=== PATIENT | female | born 1980 | race Caucasian/White ===

== ENCOUNTER 2018-05-08 11:41 | Inpatient (IN) | payer BC ==
[2018-05-08] MEDS ORDERED: Ondansetron 4 MG/2 ML SDV IVPUSH PRN (12:21)
[2018-05-08] MEDS: Sodium Chloride 0.9% 1,000 ML IV SCH ×2 (12:43→21:36)
[2018-05-08] MEDS: metroNIDAZOLE/Normal Saline 500 MG in Premix Bag 1 BAG IV SCH ×2 (12:54→20:04)
[2018-05-08] MEDS: Sodium Chloride 0.9% 10 ML Syringe FLUSH PRN ×2 (13:14→13:46)
[2018-05-08] MEDS: Ondansetron 4 MG/2 ML SDV IVPUSH PRN (13:14)
[2018-05-08] MEDS: Vancomycin 125 MG/5 ML ML Oral Solution PO SCH ×3 (13:45→21:31)
[2018-05-08] MEDS: Acetaminophen 325 MG Tab PO PRN ×2 (15:41→21:31)
[2018-05-08] MEDS: Ketorolac 30 MG/ML SDV IVPUSH PRN (19:48)
[2018-05-09] MEDS: Ketorolac 30 MG/ML SDV IVPUSH PRN (03:34)
[2018-05-09] MEDS: metroNIDAZOLE/Normal Saline 500 MG in Premix Bag 1 BAG IV SCH ×3 (03:35→20:37)
[2018-05-09] MEDS: Sodium Chloride 0.9% 10 ML Syringe FLUSH PRN (03:37)
[2018-05-09] MEDS: Sodium Chloride 0.9% 1,000 ML IV SCH ×3 (06:58→21:40)
[2018-05-09] MEDS: Vancomycin 125 MG/5 ML ML Oral Solution PO SCH ×4 (09:00→21:41)
--- NOTE | 2018-05-09 10:21 | PCM.CONS ---
H&P History of Present Illness - General Date of Service: 05/09/18 Admit Problem/Dx: Admission Diagnosis/Problem Admission Diagnosis/Problem Abdominal pain Source of Information: Patient, Old Records - History of Present Illness Initial Comments - Free Text/Narative: 37 yo esteban who was admitted yesterday with a 2 wk hx of diarrhea. She underwent a d+c as well as a robotic left ovarian cystectomy and tubal ligation. As part of her perioperative medication was given cleocin. She developed diarrhea in the post operative time frame and has been going up to every 15 min a day. She was seen in clinic on the Apr and this was felt to be secondary to a viral illness. Was given imodium with no relief or her sx. Yesterday was admitted to after presenting to the clinic. Noted to have a leukocytosis, stools for c diff and culture have been ordered. In addition to the diarrhea. She has had some abdominal pain. especially on the right. It is worse with movement. She also notes some fever and chills as well. Abdomen Pain Score (Numeric/FACES): 6 DENIES ANY PAIN WHEN ASKED AT PRESENT TIME. Pain Score (Numeric/FACES): 0 - Related Data Allergies/Adverse Reactions: Allergies Allergy/AdvReac Type Severity Reaction Status Date / Time ampicillin Allergy Hives Verified 02/20/14 09:23 Home Medications: Home Meds Acetaminophen/HYDROcodone [[place] 325-5 MG] 1 tab PO Q4H PRN 05/09/18 [History] Loperamide HCl [Imodium A-D] 2 mg PO 5XDAY PRN 05/09/18 [History] Past Medical History Gastrointestinal History: Reports: Other (See Below) Other Gastrointestinal History: diarhea since 05/01/18 several stools per day HIDE BUFFER History: Reports: , Spontaneous , Other (See Below) Other OB/BYN History: pt had a miscarriage and on 04/25/18 had a d&c at [facility] with removal of a large left ovarian cyst via laproscopic procedure at the same time - Past Surgical History GI Surgical History: Reports: Hernia, Abdominal Social & Family History - Family History Family Medical History: Noncontributory - Tobacco Use Smoking Status *Q: Never Smoker Second Hand Smoke Exposure: No - Caffeine Use Caffeine Use: Reports: Coffee, Soda - Recreational Drug Use Recreational Drug Use: No H&P Review of Systems - Review of Systems: Review Of Systems: See Below General: Reports: Fever, Chills, Malaise Pulmonary: Reports: No Symptoms Cardiovascular: Reports: No Symptoms Gastrointestinal: Reports: Diarrhea. Denies: Bloody Stool Genitourinary: Reports: No Symptoms Musculoskeletal: Reports: No Symptoms Skin: Reports: No Symptoms Exam - Exam Exam: See Below - Vital Signs Vital Signs: Last Vital Signs Temp 98.3 F 05/09/18 06:48 Pulse 96 05/09/18 06:48 Resp 18 05/09/18 06:48 BP 104/55 L 05/09/18 06:48 Pulse Ox 96 05/09/18 06:48 Weight: 87.09 kg - Exam General: Alert, Moderate Distress Lungs: Clear to Auscultation, Normal Respiratory Effort Cardiovascular: Regular Rate, Regular Rhythm GI/Abdominal Exam: No Distention, Tender (right side ) - Patient Data Lab Results Last 24 hrs: Laboratory Results - last 24 hr 05/08/18 05/08/18 05/09/18 Range/Units 12:43 17:15 06:30 WBC 17.4 H (4.5-12.0) X10-3/uL RBC 4.78 (3.23-5.20) x10(6)uL Hgb 14.1 (11.5-15.5) g/dL Hct 41.6 (30.0-51.3) % MCV 87.0 (80-96) fL MCH 29.6 (27.7-33.6) pg MCHC 34.0 (32.2-35.4) g/dL RDW 11.8 (11.5-15.5) % Plt Count 307 (125-369) X10(3)uL MPV 6.7 L (7.4-10.4) fL Add Manual Diff Yes Neutrophils % (Manual) 86 H (46-82) % Band Neutrophils % 1 (0-6) % Lymphocytes % (Manual) 7 L (13-37) % Monocytes % (Manual) 6 (4-12) % ESR 1 (0-20) mm/hr Sodium (135-145) mmol/L Potassium (3.5-5.3) mmol/L Chloride (100-110) mmol/L Carbon Dioxide (21-32) mmol/L BUN (7-18) mg/dL Creatinine (0.55-1.02) mg/dL Est Cr Clr Drug Dosing mL/min Estimated GFR (MDRD) (>60) BUN/Creatinine Ratio (9-20) Glucose (80-116) mg/dL Lactic Acid (0.4-2.2) mmol/L Calcium (8.6-10.2) mg/dL C-Reactive Protein (0.5-0.9) mg/dL HCG, Quant 67 (<5) mIU/mL Urine Color Yellow (YELLOW) Urine Appearance Clear (CLEAR) Urine pH 5.0 (5.0-6.5) Ur Specific [place] 1.015 (1.010-1.025) Urine Protein Negative (NEGATIVE) mg/dL Urine Glucose (UA) Normal (NEGATIVE) mg/dL Urine Ketones 50 H (NEGATIVE) mg/dL Urine Occult Blood Moderate H (NEGATIVE) Urine Nitrite Negative (NEGATIVE) Urine Bilirubin Negative (NEGATIVE) Urine Urobilinogen Normal (NEGATIVE) mg/dL Ur Leukocyte Esterase Negative (NEGATIVE) Urine RBC 5-10 (0) Urine WBC 0-5 (0) Ur Squamous Epith Cells Few H (NS,R,O) Urine Bacteria Few H (NS) 05/09/18 05/09/18 05/09/18 Range/Units 06:30 06:30 06:30 WBC (4.5-12.0) X10-3/uL RBC (3.23-5.20) x10(6)uL Hgb (11.5-15.5) g/dL Hct (30.0-51.3) % MCV (80-96) fL MCH (27.7-33.6) pg MCHC (32.2-35.4) g/dL RDW (11.5-15.5) % Plt Count (125-369) X10(3)uL MPV (7.4-10.4) fL Add Manual Diff Neutrophils % (Manual) (46-82) % Band Neutrophils % (0-6) % Lymphocytes % (Manual) (13-37) % Monocytes % (Manual) (4-12) % ESR (0-20) mm/hr Sodium 137 (135-145) mmol/L Potassium 3.4 L (3.5-5.3) mmol/L Chloride 104 (100-110) mmol/L Carbon Dioxide 24 (21-32) mmol/L BUN 6 L (7-18) mg/dL Creatinine 0.8 (0.55-1.02) mg/dL Est Cr Clr Drug Dosing 113.49 mL/min Estimated GFR (MDRD) > 60 (>60) BUN/Creatinine Ratio 7.5 L (9-20) Glucose 105 (80-116) mg/dL Lactic Acid 0.6 (0.4-2.2) mmol/L Calcium 7.5 L (8.6-10.2) mg/dL C-Reactive Protein 4.4 H* (0.5-0.9) mg/dL HCG, Quant (<5) mIU/mL Urine Color (YELLOW) Urine Appearance (CLEAR) Urine pH (5.0-6.5) Ur Specific [place] (1.010-1.025) Urine Protein (NEGATIVE) mg/dL Urine Glucose (UA) (NEGATIVE) mg/dL Urine Ketones (NEGATIVE) mg/dL Urine Occult Blood (NEGATIVE) Urine Nitrite (NEGATIVE) Urine Bilirubin (NEGATIVE) Urine Urobilinogen (NEGATIVE) mg/dL Ur Leukocyte Esterase (NEGATIVE) Urine RBC (0) Urine WBC (0) Ur Squamous Epith Cells (NS,R,O) Urine Bacteria (NS) Result Diagrams: 05/09/18 06:30 05/09/18 06:30 Consult PN Assessment/Plan Procedures: Procedures CHORIONIC GONADOTROPIN ASSAY (02/20/14) RPR UMBIL BARBARA REDUC > 5 YR (02/20/14) TISSUE EXAM BY PATHOLOGIST (02/20/14) (1) Diarrhea SNOMED Code(s): 31975925 Code(s): R19.7 - DIARRHEA, UNSPECIFIED Current Visit: Yes Qualifiers: Diarrhea type: presumed infectious Qualified Code(s): R19.7 - Diarrhea, unspecified Assessment:: Given hx of cleocin this is C. Diff until proven otherwise Problem List Initiated/Reviewed/Updated: Yes Plan: would await the stool studies. already on appropriate antibiotics, po vanc would recommend a kub to eval the colon for dilation. continue hydration monitor U/O
[2018-05-09] MEDS: Ketorolac 15 MG/ML SDV IVPUSH PRN ×3 (10:48→20:36)
--- NOTE | 2018-05-09 13:11 | PN ---
DATE SEEN: 05/09/2018 SUBJECTIVE: Inez Warner is a 37-year-old female, presented with complicated diarrhea. Clostridium difficile of concern. Spoke with lab. Laboratory tests were forwarded to [place]. Results should be available this evening. Further GI workup sent to reference lab. She had a pretty good night. Has cramps, urgency, passes a small quantity of stool, and relief. Appetite reduced but taking fluids with reasonable success. OBJECTIVE: VITAL SIGNS: 36.8, 105/55, 18, 96. GENERAL: Soft spoken. A bit withdrawn. NECK: Benign. Thyroid small. CHEST: Clear in all lung delgado. HEART: Regular without ectopy or murmur. ABDOMEN: Surgical scars were noted. Recent laparoscopic issue, but unchanged. Mild tenderness. ASSESSMENT: Complicated diarrhea, likely infectious origin, likely clostridia. PLAN: We will have consultation with Dr. Madrigal for completeness. Radiographs will be performed. Advancement of IV fluids. Continue treatment. Clostridia testing available this evening. /[id number] JANESSA/HAYDEE
--- NOTE | 2018-05-09 13:56 | HP ---
ADMISSION DATE: 05/08/2018 CHIEF COMPLAINT: Complicated abdominal pain, diarrhea, and dehydration. HISTORY OF PRESENT ILLNESS: Inez Warner is a 37-year-old, female, [place] resident, was seen by Dr. Maximino Bowen at [facility], for a protracted lengthy gastrointestinal conflict. The patient had undergone on 04/25/2018, a da Jose Antonio left ovarian cystectomy, left oophorectomy versus cystectomy, bilateral salpingectomy, and suction D and C for about a 10-week nonviable . At the time of her visit to Dr. Alejo, was uncertain of the well-being, exam revealed evidence of a spontaneous AB, and underwent a surgical intervention 04/25/2018. All went well. No complicating issues. Surgery went well. Pathology was benign. Discharged in good condition. She was well until about 04/29, began having cramps, abdominal pain, urgency, peculiar foul-smelling stools. Thought to be infectious and benign in nature, symptoms persisted. She was seen by Ariadne Marsh, [facility], [employer], diligence observation. Symptoms continued to be problematic, was seen by Dr. Bowen on day of admission at [facility]. Severe cramps and diarrhea. Cramps come and go, fulminant stools, large in quantity, 8-10 per day, maybe more. Again, clindamycin therapy noted. No ill contacts. Still works and is fairly comfortable in the [place] [employer] office. No family members have been ill. She has not traveled outside the area. HOME MEDICATIONS: Include: 1. Hydrocodone. 2. Loperamide. ALLERGIES: Amoxicillin with diarrhea. PAST SURGICAL HISTORY: Significant for umbilical hernia repair in 2013. Most recent right ovarian cystectomy, tubal ligation, and evacuation of spontaneous AB. PAST MEDICAL HISTORY: No other operative procedures, hospitalizations, unusual childhood diseases, major injuries, or fractures. SOCIAL HISTORY: Happily . Lives [place]. 35, good health. Works at [employer] [employer]. Nonsmoker. No alcohol consumption. No illicit drug use. FAMILY HISTORY: Dad 73, doing okay. Mom 72, doing okay. Brothers 3, no sisters. Diabetes with dad, no early complication. REVIEW OF SYSTEMS: CONSTITUTIONAL: Just feeling weak and tired. HEENT: Sees well, hears well, intact dentition. RESPIRATORY: Denies respiratory difficulty, complicated cough. GASTROINTESTINAL: Please see HPI. Recent D and C with minimal bleeding. Bladder control reasonable. MUSCULOSKELETAL: No particular joint complaint. PSYCHIATRIC: Mood has been a little bit subdued due to illness, no skin rash. PHYSICAL EXAMINATION: VITAL SIGNS: 37.3, 123/72, 14 respirations, 96. GENERAL: Acutely ill, complicated abdominal pain. HEENT: Reveal funduscopic benign. Conjunctivae clear. Bright tympanic membranes. Clear nasal discharge. Mouth and oropharynx clear. Good dentition. Tongue midline. Somewhat dry mucous membranes. Intact tonsils. NECK: Benign. Thyroid small. No meningismus. CHEST: Clear in all lung delgado on auscultation. HEART: On auscultation, no ectopy or murmur. ABDOMEN: Pretty benign. A little tender to all quadrants. Nothing localizing. Good bowel sounds. RECTAL: Deferred. EXTREMITIES: Well perfused. SKIN: Without rash. NEUROMUSCULAR: Intact. LABORATORY STUDIES: CBC and electrolytes from [facility] reviewed. ASSESSMENT: Complicated severe diarrhea, Clostridium difficile likely agent of origin. PLAN: IV fluids, good hydration, electrolyte balance, moderation and care. We will go with IV Flagyl and oral vancomycin, complementary care and well being, supportive measures, fluids, and electrolyte balance. /[id number] /HAYDEE
[2018-05-09] MEDS: Ondansetron 4 MG/2 ML SDV IVPUSH PRN (15:16)
--- NOTE | 2018-05-09 15:19 | CR ---
INDICATION: Diarrhea. Possible C. difficile colitis. ABDOMEN, SUPINE VIEW: FINDINGS: No relevant comparison imaging. There is some air and fluid and stool throughout non-distended small and large bowel. No disproportionate dilatation to suggest obstruction. On the supine view, no definite free air or pneumatosis. There are some phleboliths in the right pelvis. No other unusual masses or calcifications. There is some degenerative change associated with the facet joints of the lower lumbar spine. 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 IMPRESSION: No acute diagnostic abnormality is shown. As appropriate, consider a CT scan of abdomen and pelvis for further evaluation. MTDD
--- NOTE | 2018-05-09 17:07 | PCM.CONSN ---
- General Info Date of Service: 05/09/18 - Review of Systems Systems Review Comment:: C diff is + reports feeling better. did get a pain shot that helped. - Patient Data Vitals - Most Recent: Last Vital Signs Temp 99.4 F 05/09/18 11:30 Pulse 90 05/09/18 11:30 Resp 18 05/09/18 11:30 BP 110/72 05/09/18 11:30 Pulse Ox 96 05/09/18 11:30 Weight - Most Recent: 87.09 kg I&O - Last 24 Hours: Intake & Output 05/09/18 05/09/18 05/09/18 06:59 14:59 22:59 Intake Total 1588 1585 Output Total 840 Balance 1588 745 Lab Results Last 24 Hours: Laboratory Results - last 24 hr 05/08/18 05/09/18 05/09/18 Range/Units 17:15 06:30 06:30 WBC 17.4 H (4.5-12.0) X10-3/uL RBC 4.78 (3.23-5.20) x10(6)uL Hgb 14.1 (11.5-15.5) g/dL Hct 41.6 (30.0-51.3) % MCV 87.0 (80-96) fL MCH 29.6 (27.7-33.6) pg MCHC 34.0 (32.2-35.4) g/dL RDW 11.8 (11.5-15.5) % Plt Count 307 (125-369) X10(3)uL MPV 6.7 L (7.4-10.4) fL Add Manual Diff Yes Neutrophils % (Manual) 86 H (46-82) % Band Neutrophils % 1 (0-6) % Lymphocytes % (Manual) 7 L (13-37) % Monocytes % (Manual) 6 (4-12) % ESR 1 (0-20) mm/hr Sodium (135-145) mmol/L Potassium (3.5-5.3) mmol/L Chloride (100-110) mmol/L Carbon Dioxide (21-32) mmol/L BUN (7-18) mg/dL Creatinine (0.55-1.02) mg/dL Est Cr Clr Drug Dosing mL/min Estimated GFR (MDRD) (>60) BUN/Creatinine Ratio (9-20) Glucose (80-116) mg/dL Lactic Acid 0.6 (0.4-2.2) mmol/L Calcium (8.6-10.2) mg/dL C-Reactive Protein (0.5-0.9) mg/dL Urine Color Yellow (YELLOW) Urine Appearance Clear (CLEAR) Urine pH 5.0 (5.0-6.5) Ur Specific [place] 1.015 (1.010-1.025) Urine Protein Negative (NEGATIVE) mg/dL Urine Glucose (UA) Normal (NEGATIVE) mg/dL Urine Ketones 50 H (NEGATIVE) mg/dL Urine Occult Blood Moderate H (NEGATIVE) Urine Nitrite Negative (NEGATIVE) Urine Bilirubin Negative (NEGATIVE) Urine Urobilinogen Normal (NEGATIVE) mg/dL Ur Leukocyte Esterase Negative (NEGATIVE) Urine RBC 5-10 (0) Urine WBC 0-5 (0) Ur Squamous Epith Cells Few H (NS,R,O) Urine Bacteria Few H (NS) 05/09/18 05/09/18 Range/Units 06:30 06:30 WBC (4.5-12.0) X10-3/uL RBC (3.23-5.20) x10(6)uL Hgb (11.5-15.5) g/dL Hct (30.0-51.3) % MCV (80-96) fL MCH (27.7-33.6) pg MCHC (32.2-35.4) g/dL RDW (11.5-15.5) % Plt Count (125-369) X10(3)uL MPV (7.4-10.4) fL Add Manual Diff Neutrophils % (Manual) (46-82) % Band Neutrophils % (0-6) % Lymphocytes % (Manual) (13-37) % Monocytes % (Manual) (4-12) % ESR (0-20) mm/hr Sodium 137 (135-145) mmol/L Potassium 3.4 L (3.5-5.3) mmol/L Chloride 104 (100-110) mmol/L Carbon Dioxide 24 (21-32) mmol/L BUN 6 L (7-18) mg/dL Creatinine 0.8 (0.55-1.02) mg/dL Est Cr Clr Drug Dosing 113.49 mL/min Estimated GFR (MDRD) > 60 (>60) BUN/Creatinine Ratio 7.5 L (9-20) Glucose 105 (80-116) mg/dL Lactic Acid (0.4-2.2) mmol/L Calcium 7.5 L (8.6-10.2) mg/dL C-Reactive Protein 4.4 H* (0.5-0.9) mg/dL Urine Color (YELLOW) Urine Appearance (CLEAR) Urine pH (5.0-6.5) Ur Specific [place] (1.010-1.025) Urine Protein (NEGATIVE) mg/dL Urine Glucose (UA) (NEGATIVE) mg/dL Urine Ketones (NEGATIVE) mg/dL Urine Occult Blood (NEGATIVE) Urine Nitrite (NEGATIVE) Urine Bilirubin (NEGATIVE) Urine Urobilinogen (NEGATIVE) mg/dL Ur Leukocyte Esterase (NEGATIVE) Urine RBC (0) Urine WBC (0) Ur Squamous Epith Cells (NS,R,O) Urine Bacteria (NS) [place] Results Last 24 Hours: Microbiology 05/08/18 17:15 Clostridium difficile Toxin A & B - Final Stool / Feces Positive C. Diff Toxin 05/08/18 12:43 Aerobic Blood Culture - Preliminary Blood - Venous NO GROWTH AFTER 1 DAY Anaerobic Blood Culture - Preliminary NO GROWTH AFTER 1 DAY Med Orders - Current: Current Medications Acetaminophen (Tylenol) 650 mg PO Q4H PRN PRN Reason: Pain Last Admin: 05/08/18 21:31 Dose: 650 mg Sodium Chloride (Normal Saline) 1,000 mls @ 150 mls/hr IV ASDIRECTED [facility] Last Admin: 05/09/18 15:24 Dose: 125 mls/hr Metronidazole 500 mg/ Premix 100 mls @ 100 mls/hr IV Q8H [facility] Last Admin: 05/09/18 12:15 Dose: 100 mls/hr Ketorolac Tromethamine (Toradol) 15 mg IVPUSH Q4H PRN PRN Reason: abd pain Stop: 05/13/18 18:22 Last Admin: 05/09/18 15:21 Dose: 15 mg Ondansetron HCl (Zofran) 4 mg IVPUSH Q4H PRN PRN Reason: Nausea/Vomiting Last Admin: 05/09/18 15:16 Dose: 4 mg Sodium Chloride (Saline Flush) 10 ml FLUSH ASDIRECTED PRN PRN Reason: Keep Vein Open Last Admin: 05/09/18 03:37 Dose: 10 ml Vancomycin HCl (Vancocin 125 Mg/5 Ml Soln) 125 mg PO QID ASHLEE Last Admin: 05/09/18 16:37 Dose: 125 mg Discontinued Medications Vancomycin HCl 2,000 mg/ (Sodium Chloride) 250 mls @ 167 mls/hr IV Q12H ASHLEE Ketorolac Tromethamine (Toradol) 15 mg IVPUSH Q4H PRN PRN Reason: abd pain Stop: 05/13/18 18:22 Last Admin: 05/09/18 03:34 Dose: 15 mg Ondansetron HCl (Zofran) 4 mg IVPUSH Q6H PRN PRN Reason: Nausea/Vomiting Vancomycin HCl (Pharmacy To Dose - Vancomycin) 1 dose .XX ASDIRECTED ASHLEE - Exam General: Alert, Oriented, Cooperative, Mild Distress (better ) GI/Abdominal Exam: Soft, Tender (improved from this am ) Consult PN Assessment/Plan Procedures: Procedures CHORIONIC GONADOTROPIN ASSAY (02/20/14) RPR UMBIL BARBARA REDUC > 5 YR (02/20/14) TISSUE EXAM BY PATHOLOGIST (02/20/14) (1) C. difficile colitis SNOMED Code(s): 657551067 Code(s): A04.72 - ENTEROCOLITIS D/T CLOSTRIDIUM DIFFICILE, NOT SPCF RECUR Priority: High Current Visit: Yes Problem List Initiated/Reviewed/Updated: Yes My Orders Last 24 Hours: My Active Orders 05/09/18 10:26 Intake and Output [RC] Q4HR 05/09/18 16:59 LACTIC ACID [CHEM] Routine 05/10/18 05:11 CBC WITH AUTO DIFF [HEME] AM COMPREHENSIVE METABOLIC PN,CMP [CHEM] AM Plan: will recheck lactic acid labs in am.
[2018-05-10] MEDS: Sodium Chloride 0.9% 1,000 ML IV SCH ×2 (04:20→12:02)
[2018-05-10] MEDS: metroNIDAZOLE/Normal Saline 500 MG in Premix Bag 1 BAG IV SCH ×3 (04:21→20:56)
[2018-05-10] MEDS: Ketorolac 15 MG/ML SDV IVPUSH PRN (04:32)
[2018-05-10] MEDS: Vancomycin 125 MG/5 ML ML Oral Solution PO SCH ×4 (09:26→21:03)
[2018-05-10] MEDS: Hydrocortisone 2.5% Crm 30 GM Tube TOP SCH ×2 (09:26→21:01)
--- NOTE | 2018-05-10 10:55 | PCM.CONSN ---
- General Info Date of Service: 05/10/18 - Review of Systems Systems Review Comment:: Feeling better - Patient Data Vitals - Most Recent: Last Vital Signs Temp 99.1 F 05/10/18 00:00 Pulse 98 05/10/18 04:00 Resp 17 05/10/18 04:00 BP 130/80 05/10/18 04:00 Pulse Ox 96 05/09/18 11:30 Weight - Most Recent: 87.09 kg I&O - Last 24 Hours: Intake & Output 05/09/18 05/10/18 05/10/18 22:59 06:59 14:59 Intake Total 3228 2057 Output Total 3050 800 Balance 178 1257 Lab Results Last 24 Hours: Laboratory Results - last 24 hr 05/09/18 05/10/18 05/10/18 Range/Units 17:25 06:40 06:40 WBC 9.1 (4.5-12.0) X10-3/uL RBC 4.38 (3.23-5.20) x10(6)uL Hgb 12.6 (11.5-15.5) g/dL Hct 38.0 (30.0-51.3) % MCV 86.6 (80-96) fL MCH 28.8 (27.7-33.6) pg MCHC 33.2 (32.2-35.4) g/dL RDW 12.2 (11.5-15.5) % Plt Count 262 (125-369) X10(3)uL MPV 6.7 L (7.4-10.4) fL Neut % (Auto) 75.8 (46-82) % Lymph % (Auto) 10.7 L (13-37) % [place] % (Auto) 11.1 (4-12) % Eos % (Auto) 2 (1.0-5.0) % Baso % (Auto) 0 (0-2) % Neut # (Auto) 6.9 (1.6-8.3) # Lymph # (Auto) 1.0 (0.6-5.0) # [place] # (Auto) 1.0 (0.0-1.3) # Eos # (Auto) 0.2 (0.0-0.8) # Baso # (Auto) 0.0 (0.0-0.2) # Sodium 142 (135-145) mmol/L Potassium 3.3 L (3.5-5.3) mmol/L Chloride 109 D (100-110) mmol/L Carbon Dioxide 25 (21-32) mmol/L BUN 3 L (7-18) mg/dL Creatinine 0.7 (0.55-1.02) mg/dL Est Cr Clr Drug Dosing 129.71 mL/min Estimated GFR (MDRD) > 60 (>60) BUN/Creatinine Ratio 4.3 L (9-20) Glucose 94 (80-116) mg/dL Lactic Acid 0.6 (0.4-2.2) mmol/L Calcium 6.9 L (8.6-10.2) mg/dL Total Bilirubin 0.3 (0.1-1.3) mg/dL AST 23 (5-25) IU/L ALT 34 (12-36) U/L Alkaline Phosphatase 36 L (56-112) IU/L Total Protein 4.1 L (6.0-8.0) g/dL Albumin 1.7 L* (3.5-5.2) g/dL Globulin 2.4 g/dL Albumin/Globulin Ratio 0.7 HCG, Quant (<5) mIU/mL 05/10/18 Range/Units 06:40 WBC (4.5-12.0) X10-3/uL RBC (3.23-5.20) x10(6)uL Hgb (11.5-15.5) g/dL Hct (30.0-51.3) % MCV (80-96) fL MCH (27.7-33.6) pg MCHC (32.2-35.4) g/dL RDW (11.5-15.5) % Plt Count (125-369) X10(3)uL MPV (7.4-10.4) fL Neut % (Auto) (46-82) % Lymph % (Auto) (13-37) % [place] % (Auto) (4-12) % Eos % (Auto) (1.0-5.0) % Baso % (Auto) (0-2) % Neut # (Auto) (1.6-8.3) # Lymph # (Auto) (0.6-5.0) # [place] # (Auto) (0.0-1.3) # Eos # (Auto) (0.0-0.8) # Baso # (Auto) (0.0-0.2) # Sodium (135-145) mmol/L Potassium (3.5-5.3) mmol/L Chloride (100-110) mmol/L Carbon Dioxide (21-32) mmol/L BUN (7-18) mg/dL Creatinine (0.55-1.02) mg/dL Est Cr Clr Drug Dosing mL/min Estimated GFR (MDRD) (>60) BUN/Creatinine Ratio (9-20) Glucose (80-116) mg/dL Lactic Acid (0.4-2.2) mmol/L Calcium (8.6-10.2) mg/dL Total Bilirubin (0.1-1.3) mg/dL AST (5-25) IU/L ALT (12-36) U/L Alkaline Phosphatase (56-112) IU/L Total Protein (6.0-8.0) g/dL Albumin (3.5-5.2) g/dL Globulin g/dL Albumin/Globulin Ratio HCG, Quant 31 (<5) mIU/mL [place] Results Last 24 Hours: Microbiology 05/08/18 17:15 Clostridium difficile Toxin A & B - Final Stool / Feces Positive C. Diff Toxin 05/08/18 12:43 Aerobic Blood Culture - Preliminary Blood - Venous NO GROWTH AFTER 1 DAY Anaerobic Blood Culture - Preliminary NO GROWTH AFTER 1 DAY Med Orders - Current: Current Medications Acetaminophen (Tylenol) 650 mg PO Q4H PRN PRN Reason: Pain Last Admin: 05/08/18 21:31 Dose: 650 mg Hydrocortisone (Hydrocortisone 2.5% Crm) 0 gm TOP BID [facility] Last Admin: 05/10/18 09:26 Dose: 30 mg Metronidazole 500 mg/ Premix 100 mls @ 100 mls/hr IV Q8H [facility] Last Admin: 05/10/18 04:21 Dose: 100 mls/hr Sodium Chloride (Normal Saline) 1,000 mls @ 75 mls/hr IV ASDIRECTED [facility] Ketorolac Tromethamine (Toradol) 15 mg IVPUSH Q4H PRN PRN Reason: abd pain Stop: 05/13/18 18:22 Last Admin: 05/10/18 04:32 Dose: 15 mg Ondansetron HCl (Zofran) 4 mg IVPUSH Q4H PRN PRN Reason: Nausea/Vomiting Last Admin: 05/09/18 15:16 Dose: 4 mg Sodium Chloride (Saline Flush) 10 ml FLUSH ASDIRECTED PRN PRN Reason: Keep Vein Open Last Admin: 05/09/18 03:37 Dose: 10 ml Vancomycin HCl (Vancocin 125 Mg/5 Ml Soln) 125 mg PO QID ASHLEE Last Admin: 05/10/18 09:26 Dose: 125 mg Discontinued Medications Sodium Chloride (Normal Saline) 1,000 mls @ 150 mls/hr IV ASDIRECTED ASHLEE Last Admin: 05/10/18 04:20 Dose: 125 mls/hr Vancomycin HCl 2,000 mg/ (Sodium Chloride) 250 mls @ 167 mls/hr IV Q12H ASHLEE Ketorolac Tromethamine (Toradol) 15 mg IVPUSH Q4H PRN PRN Reason: abd pain Stop: 05/13/18 18:22 Last Admin: 05/09/18 03:34 Dose: 15 mg Ondansetron HCl (Zofran) 4 mg IVPUSH Q6H PRN PRN Reason: Nausea/Vomiting Vancomycin HCl (Pharmacy To Dose - Vancomycin) 1 dose .XX ASDIRECTED ASHLEE - Exam General: Alert, Oriented Lungs: Clear to Auscultation, Normal Respiratory Effort Cardiovascular: Regular Rate, Regular Rhythm GI/Abdominal Exam: Normal Bowel Sounds, Soft, Non-Tender Consult PN Assessment/Plan Procedures: Procedures CHORIONIC GONADOTROPIN ASSAY (02/20/14) RPR UMBIL BARBARA REDUC > 5 YR (02/20/14) TISSUE EXAM BY PATHOLOGIST (02/20/14) (1) C. difficile colitis SNOMED Code(s): 103065087 Code(s): A04.72 - ENTEROCOLITIS D/T CLOSTRIDIUM DIFFICILE, NOT SPCF RECUR Priority: High Current Visit: Yes Problem List Initiated/Reviewed/Updated: Yes My Orders Last 24 Hours: My Active Orders 05/09/18 10:26 Intake and Output [RC] Q4HR Plan: no further recommendations will sign off.
--- NOTE | 2018-05-10 10:55 | PN ---
DATE SEEN: 05/10/2018 SUBJECTIVE: Inez Warner is a 37-year-old, female, admitted with complicated diarrhea. Suspect clostridium difficile. Undergone laparoscopic tubal ligation, right ovarian cystectomy, D and C for incomplete spontaneous AB. Single dose of antibiotics was given. Dr. Alejo has requested repeat test. Numbers in the clinic have shown an appropriate decline. Last done date of admission was 69. Couple of stools last night. The pain is improving with less frequency and quantity. In good spirits otherwise. Fever has been absent. OBJECTIVE: VITAL SIGNS: 37.9, 99, 110/70, 83 mean, and 18 respirations. GENERAL: Appears much more comfortable. NECK: Benign. Thyroid small. CHEST: Clear in all lung delgado. HEART: Regular without ectopy or murmur. ABDOMEN: Benign. A little tender. SKIN: Surgical scar is well healed. ASSESSMENT: Clostridium difficile, improved, clinically and laboratory diagnosed. PLAN: Continue oral vancomycin, IV Flagyl, expect short hospital stay. ADDENDUM: She also has nonpalpable red raised rash on upper back, likely related to hospital clothing, Benadryl lotion will be applied t.i.d.. /[id number] /HAYDEE
[2018-05-10] MEDS: diphenhydrAMINE 50 MG/ML SDV IVPUSH PRN (21:31)
[2018-05-10] MEDS: Sodium Chloride 0.9% 10 ML Syringe FLUSH PRN (21:32)
[2018-05-11] MEDS: Sodium Chloride 0.9% 1,000 ML IV SCH (01:27)
[2018-05-11] MEDS: diphenhydrAMINE 50 MG/ML SDV IVPUSH PRN (04:03)
--- NOTE | 2018-05-11 08:20 | PCM.PN ---
- General Info Date of Service: 05/11/18 Admission Dx/Problem (Free Text): Patient states she feels better. She has no nausea or vomiting. She has a little bit of diffuse abdominal pain that's improved. She still has watery diarrhea without blood. She still has some night sweats. Overall she feels better. She had a rash last night. He was treated with Benadryl and improved. Yesterday she said she may have a little bit of wheezing that dissipated. The metronidazole was held. The vancomycin was not been given either. - Patient Data Vitals - Most Recent: Last Vital Signs Temp 98.3 F 05/11/18 04:00 Pulse 81 05/11/18 04:00 Resp 16 05/11/18 04:00 BP 123/78 05/11/18 04:00 Pulse Ox 95 05/11/18 04:00 Weight - Most Recent: 192 lb I&O - Last 24 Hours: Intake & Output 05/10/18 05/11/18 05/11/18 22:59 06:59 14:59 Intake Total 869 711 Output Total 970 1250 1500 Balance -101 -539 -1500 Lab Results Last 24 Hours: Laboratory Results - last 24 hr 05/10/18 Range/Units 06:40 HCG, Quant 31 (<5) mIU/mL [place] Results Last 24 Hours: Microbiology 05/08/18 12:43 Aerobic Blood Culture - Preliminary Blood - Venous NO GROWTH AFTER 2 DAYS Anaerobic Blood Culture - Preliminary NO GROWTH AFTER 2 DAYS Med Orders - Current: Current Medications Acetaminophen (Tylenol) 650 mg PO Q4H PRN PRN Reason: Pain Last Admin: 05/08/18 21:31 Dose: 650 mg Dibucaine (Nupercainal 1% Oint) 0 gm TOP QID PRN PRN Reason: Hemorrhoids Diphenhydramine HCl (Benadryl) 25 mg IVPUSH Q6H PRN PRN Reason: Rash Last Admin: 05/11/18 04:03 Dose: 25 mg Hydrocortisone (Hydrocortisone 2.5% Crm) 0 gm TOP BID ASHLEE Last Admin: 05/10/18 21:01 Dose: 1 applic Sodium Chloride (Saline Flush) 10 ml FLUSH ASDIRECTED PRN PRN Reason: Keep Vein Open Last Admin: 05/10/18 21:32 Dose: 10 ml Vancomycin HCl (Vancocin 125 Mg/5 Ml Soln) 125 mg PO QID [facility] Last Admin: 05/10/18 21:03 Dose: 125 mg Discontinued Medications Sodium Chloride (Normal Saline) 1,000 mls @ 150 mls/hr IV ASDIRECTED [facility] Last Admin: 05/10/18 04:20 Dose: 125 mls/hr Metronidazole 500 mg/ Premix 100 mls @ 100 mls/hr IV Q8H [facility] Last Admin: 05/10/18 20:56 Dose: 100 mls/hr Vancomycin HCl 2,000 mg/ (Sodium Chloride) 250 mls @ 167 mls/hr IV Q12H [facility] Sodium Chloride (Normal Saline) 1,000 mls @ 75 mls/hr IV ASDIRECTED [facility] Last Admin: 05/11/18 01:27 Dose: 75 mls/hr Ketorolac Tromethamine (Toradol) 15 mg IVPUSH Q4H PRN PRN Reason: abd pain Stop: 05/13/18 18:22 Last Admin: 05/09/18 03:34 Dose: 15 mg Ketorolac Tromethamine (Toradol) 15 mg IVPUSH Q4H PRN PRN Reason: abd pain Stop: 05/13/18 18:22 Last Admin: 05/10/18 04:32 Dose: 15 mg Ondansetron HCl (Zofran) 4 mg IVPUSH Q4H PRN PRN Reason: Nausea/Vomiting Last Admin: 05/09/18 15:16 Dose: 4 mg Ondansetron HCl (Zofran) 4 mg IVPUSH Q6H PRN PRN Reason: Nausea/Vomiting Vancomycin HCl (Pharmacy To Dose - Vancomycin) 1 dose .XX ASDIRECTED [facility] - Exam General: Alert, Oriented, Cooperative Neck: Supple Lungs: Normal Respiratory Effort GI/Abdominal Exam: Normal Bowel Sounds, Soft, No Mass, Distended (Mild), Tender (Mild diffuse). No: Guarding, Rigid, Rebound - Problem List & Annotations (1) C. difficile colitis SNOMED Code(s): 416461769 Code(s): A04.72 - ENTEROCOLITIS D/T CLOSTRIDIUM DIFFICILE, NOT SPCF RECUR Status: Acute Priority: High Current Visit: Yes (2) Medication reaction SNOMED Code(s): 53513597 Code(s): T50.905A - ADVERSE EFFECT OF UNSP DRUG/MEDS/BIOL SUBST, INIT Status: Acute Current Visit: Yes Qualifiers: Encounter type: initial encounter Qualified Code(s): T50.905A - Adverse effect of unspecified drugs, medicaments and biological substances, initial encounter - Problem List Review Problem List Initiated/Reviewed/Updated: Yes - My Orders Last 24 Hours: My Active Orders 05/11/18 08:15 Convert IV to Saline Lock [OM.PC] Routine - Plan Plan:: 1. Stop the metronidazole. 2. She is most likely allergic other metronidazole or vancomycin. Vancomycin is a treatment of choice by mouth for C. difficile colitis. I'm going to go ahead and try today and see how she reacts to. If she does well she may go home. 3. DC IV fluids and saline lock IV. 4. Vitals every shift. 5. D/C I and O.
[2018-05-11] MEDS: Vancomycin 125 MG/5 ML ML Oral Solution PO SCH ×2 (08:37→13:02)
[2018-05-11] MEDS: Hydrocortisone 2.5% Crm 30 GM Tube TOP SCH (08:39)
--- NOTE | 2018-05-11 15:26 | PCM.SN ---
- Free Text/Narrative Note: Patient had 2 doses of vancomycin with no metronidazole. She didn't have any rash. She will be discharged home on 4 times a day dosing for 9 days for a total of 10 days.
--- NOTE | 2018-05-11 15:29 | PCM.DCSUM1 ---
Discharge Summary - Hospital Course Free Text/Narrative:: Hospital course-Dr. Taveras administered the hospital. He started on metronidazole and oral vancomycin. Her white count went up to 17,000. She is given IV fluids, eyes and nose and precautions. Stool came back C. diff positive. There is also enteric stool cultures that are pending. Patient improved nicely. By day 3. So abdominal discomfort but no nausea, vomiting patient is some night sweats but feels much better. She had a rash so the metronidazole and vancomycin was stopped. I started the oral Vanco again and held the metronidazole for 2 doses. Had no rash. We'll discharge to home on oral vancomycin 125 mg 4 times a day for 9 days. I'll have her recheck her in the clinic within a week. She'll call if she is getting worse. 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 She was given gentamicin and clindamycin preop. Came home started having abdominal pain, nausea vomiting and diarrhea. She was seen and then I saw her and placed in the hospital. Diagnosis: Stroke: No - Discharge Data Discharge Date: 05/11/18 Discharge Disposition: Home, Self-Care 01 Condition: Good - Discharge Diagnosis/Problem(s) (1) C. difficile colitis SNOMED Code(s): 280744214 ICD Code: A04.72 - ENTEROCOLITIS D/T CLOSTRIDIUM DIFFICILE, NOT SPCF RECUR Status: Acute Priority: High Current Visit: Yes (2) Medication reaction SNOMED Code(s): 26034963 ICD Code: T50.905A - ADVERSE EFFECT OF UNSP DRUG/MEDS/BIOL SUBST, INIT Status: Acute Current Visit: Yes Qualifiers: Encounter type: initial encounter Qualified Code(s): T50.905A - Adverse effect of unspecified drugs, medicaments and biological substances, initial encounter - Patient Instructions Diet: Regular Diet as Tolerated Activity: As Tolerated Driving: May Drive Today Showering/Bathing: May Shower Notify Provider of: Fever, Increased Pain, Drainage, Nausea and/or Vomiting Other/Special Instructions: 1. Recheck with Dr. Bowen early next week. I will have one of our nurses call her for an appointment. - Discharge Plan Prescriptions/Med Rec: Vancomycin 125 mg PO QID #26 cap Home Medications: Home Meds Acetaminophen/HYDROcodone [Lynn 325-5 MG] 1 tab PO Q4H PRN 05/09/18 [History] Vancomycin 125 mg PO QID #26 cap 05/11/18 [Rx] Patient Handouts: Viral Gastroenteritis, Adult, [id number], Clostridium Difficile Infection, Fall Prevention in Hospitals, Adult, Diarrhea, Adult, Easy- to-Read, Venous Thromboembolism Prevention - Discharge Summary/Plan Comment DC Time >30 min.: No - Patient Data Vitals - Most Recent: Last Vital Signs Temp 98 F 05/11/18 08:00 Pulse 88 05/11/18 08:00 Resp 16 05/11/18 08:00 BP 126/84 05/11/18 08:00 Pulse Ox 95 05/11/18 08:00 Weight - Most Recent: 192 lb I&O - Last 24 hours: Intake & Output 05/11/18 05/11/18 05/11/18 06:59 14:59 22:59 Intake Total 711 392 Output Total 1250 1500 Balance -539 -1108 GAYATRI Results - Last 24 hrs: Microbiology 05/08/18 12:43 Aerobic Blood Culture - Preliminary Blood - Venous NO GROWTH AFTER 3 DAYS Anaerobic Blood Culture - Preliminary NO GROWTH AFTER 3 DAYS 05/08/18 16:25 Escherichia coli Shiga Toxins EIA - Final Stool / Feces Med Orders - Current: Current Medications Acetaminophen (Tylenol) 650 mg PO Q4H PRN PRN Reason: Pain Last Admin: 05/08/18 21:31 Dose: 650 mg Dibucaine (Nupercainal 1% Oint) 0 gm TOP QID PRN PRN Reason: Hemorrhoids Diphenhydramine HCl (Benadryl) 25 mg IVPUSH Q6H PRN PRN Reason: Rash Last Admin: 05/11/18 04:03 Dose: 25 mg Hydrocortisone (Hydrocortisone 2.5% Crm) 0 gm TOP BID ASHLEE Last Admin: 05/11/18 08:39 Dose: 1 applic Sodium Chloride (Saline Flush) 10 ml FLUSH ASDIRECTED PRN PRN Reason: Keep Vein Open Last Admin: 05/10/18 21:32 Dose: 10 ml Vancomycin HCl (Vancocin 125 Mg/5 Ml Soln) 125 mg PO QID ASHLEE Last Admin: 05/11/18 13:02 Dose: 125 mg Discontinued Medications Sodium Chloride (Normal Saline) 1,000 mls @ 150 mls/hr IV ASDIRECTED [facility] Last Admin: 05/10/18 04:20 Dose: 125 mls/hr Metronidazole 500 mg/ Premix 100 mls @ 100 mls/hr IV Q8H [facility] Last Admin: 05/10/18 20:56 Dose: 100 mls/hr Vancomycin HCl 2,000 mg/ (Sodium Chloride) 250 mls @ 167 mls/hr IV Q12H [facility] Sodium Chloride (Normal Saline) 1,000 mls @ 75 mls/hr IV ASDIRECTED [facility] Last Admin: 05/11/18 01:27 Dose: 75 mls/hr Ketorolac Tromethamine (Toradol) 15 mg IVPUSH Q4H PRN PRN Reason: abd pain Stop: 05/13/18 18:22 Last Admin: 05/09/18 03:34 Dose: 15 mg Ketorolac Tromethamine (Toradol) 15 mg IVPUSH Q4H PRN PRN Reason: abd pain Stop: 05/13/18 18:22 Last Admin: 05/10/18 04:32 Dose: 15 mg Ondansetron HCl (Zofran) 4 mg IVPUSH Q4H PRN PRN Reason: Nausea/Vomiting Last Admin: 05/09/18 15:16 Dose: 4 mg Ondansetron HCl (Zofran) 4 mg IVPUSH Q6H PRN PRN Reason: Nausea/Vomiting Vancomycin HCl (Pharmacy To Dose - Vancomycin) 1 dose .XX ASDIRECTED [facility]
== END 2018-05-11 15:45 | disposition home or self-care (01) | DRG 248 ==
LOC: FB.MS 11:41
PROVIDERS: ADMIT Family Medicine; ATTEND Family Medicine
DX: A04.72 Enterocolitis due to Clostridium difficile, not specified as recurrent (principal); L25.8 Unspecified contact dermatitis due to other agents; T49.0X5A Adverse effect of local antifungal, anti-infective and anti-inflammatory drugs, initial encounter; Y92.230 Patient room in hospital as the place of occurrence of the external cause; Z79.2 Long term (current) use of antibiotics; Z88.1 Allergy status to other antibiotic agents
CPT/HCPCS: 36415; 74018; 80048; 80053; 81001; 83605; 84702; 85025; 85651; 86140; 87040; 87045; 87046; 87177; 87209; 87324; 87427; A9270-GY; J1200; J1885; J2405; J3490; J7030; J7050